=== PATIENT | male | born 1955 | race Caucasian/White ===

== ENCOUNTER 2020-04-18 14:17 | Inpatient (IN) ==
[~2020-04-18 14:17] MED LIST: Famotidine 20 MG/2 ML VIAL IVP ONE
[2020-04-18] MEDS ORDERED: CeFAZolin Syr 2,000MG/20 ML 2,000 MG/20 ML SYRINGE IVPB ONE (14:57)
[2020-04-18] MEDS ORDERED: Ringers Solution, Lactated 1,000 ML IVC SCH ×2 (15:00→19:38)
[2020-04-18] MEDS ORDERED: *HR* OxyCODONE ER (12 HR) 10 MG TABLET PO ONE (16:55)
[2020-04-18] MEDS ORDERED: Dexamethasone 4 MG/ML VIAL IVP ONE (16:55)
[2020-04-18] MEDS ORDERED: Pregabalin 50 MG CAPSULE PO ONE (16:55)
[2020-04-18] MEDS ORDERED: Acetaminophen IV 1,000 MG/100 ML INFUS..BTL IVPB ONE (16:55)
[2020-04-18] MEDS ORDERED: Vancomycin 1,000 MG VIAL ONE (17:18)
[2020-04-18] MEDS ORDERED: Ethanol\\Acetic Acid\\Na Ace\\Ben 1,000 ML IRRIG.SOLN IR ONE (17:18)
[2020-04-18] MEDS ORDERED: *HR* Midazolam HCl 2 MG/2 ML VIAL ONE (17:43)
[2020-04-18] MEDS ORDERED: *HR* FentaNYL (PF) 100 MCG/2 ML VIAL ONE (17:43)
[2020-04-18] MEDS ORDERED: Ropivacaine/PF 0.5% 30 ML VIAL ONE (17:45)
[2020-04-18] MEDS ORDERED: ROPIVACAINE/PF/NS 0.25% 1 EACH SYRINGE INTRAART ONE (17:45)
[2020-04-18] MEDS ORDERED: Lidocaine HCL 4 ML Topical Solution (Laryng-O-Jet Kit Sterile Pak) TP ONE (17:49)
[2020-04-18] MEDS ORDERED: Ondansetron 4 MG/2 ML VIAL ONE (17:49)
[2020-04-18] MEDS ORDERED: *HR* Propofol 200 MG/20 ML VIAL IVP ONE (17:49)
[2020-04-18] MEDS ORDERED: Dexamethasone 4 MG/ML VIAL ONE (17:49)
[2020-04-18] MEDS ORDERED: Lidocaine -MPF 2% 2 ML VIAL ONE (17:49)
[2020-04-18] MEDS ORDERED: Ondansetron 4 MG/2 ML VIAL IVP PRN ×2 (17:57→19:38)
[2020-04-18] MEDS ORDERED: *HR* OxyCODONE Immed Rel 5 MG TABLET PO PRN ×2 (17:57→19:38)
[2020-04-18] MEDS ORDERED: *HR* Enoxaparin 30 MG/0.3 ML SYRINGE SQ SCH (18:00)
[2020-04-18] MEDS ORDERED: Povidone-Iodine 45 ML, Sodium Chloride IRRigation 1,000 ML IR ONE (18:10)
[2020-04-18] MEDS ORDERED: EPHEDrine 50 MG/ML VIAL ONE (18:12)
[2020-04-18] MEDS ORDERED: *HR* PHENYLEPHRINE 1,000 MCG/10 ML SYRINGE IVP ONE (18:15)
[2020-04-18 19:29] LABS: Hematocrit 41.8 % (37.5-50.1); Hemoglobin 13.8 g/dL (12.9-16.9)
[2020-04-18] MEDS ORDERED: Dextrose Gel 15 GM/37.5 ML TUBE PO PRN ×2 (19:38)
[2020-04-18] MEDS ORDERED: Naloxone 0.4 MG/ML INJ IVP PRN (19:38)
[2020-04-18] MEDS ORDERED: Sennosides 8.6 MG TABLET PO PRN (19:38)
[2020-04-18] MEDS ORDERED: D5% in Water 1,000 ML IVC PRN (19:38)
[2020-04-18] MEDS ORDERED: MOM Conc 10 ML UD.LIQ PO PRN (19:38)
[2020-04-18] MEDS ORDERED: *HR* OxyCODONE/APAP 5/325 TABLET PO PRN (19:38)
[2020-04-18] MEDS ORDERED: *HR* Dextrose 50 % in Water (Vial) 50 ML VIAL IVP PRN (19:38)
[2020-04-18] MEDS ORDERED: Insulin LISPRO 300 UNITS/3 ML VIAL SQ SCH (21:00)
[2020-04-19] MEDS: CeFAZolin 2 GM/120 ML BAG IVPB SCH ×2 (01:26→09:07)
[2020-04-19 03:21] LABS: Hematocrit 42.5 % (37.5-50.1); Hemoglobin 13.9 g/dL (12.9-16.9)
[2020-04-19 03:32] LABS: BUN/Creatinine Ratio 21 (6-26); Blood Urea Nitrogen 22 mg/dL (8-23); Carbon Dioxide 25 mEq/L (23-29); Chloride 104 mEq/L (98-107); Glucose 166 mg/dL (70-105); Osmolality,Calculated 287 (280-300); Potassium 4.4 mEq/L (3.5-5.1); Sodium 135 mEq/L (136-145); eGFR For African Americans > 60 (> 60); eGFR For Non-African Americans > 60 (> 60)
[2020-04-19] MEDS ORDERED: *HR* Enoxaparin 30 MG/0.3 ML SYRINGE SQ SCH (06:00)
[2020-04-19] MEDS: Insulin LISPRO 300 UNITS/3 ML VIAL SQ SCH ×2 (09:08→13:08)
[2020-04-19 11:25] VITALS: BP 111/58
== END 2020-04-19 14:39 | disposition home or self-care (01) | DRG 483 ==
LOC: SAMDAY 14:17 → 3NENU 14:29
PROVIDERS: ADMIT Orthopaedic Surgery; ATTEND Orthopaedic Surgery

== ENCOUNTER 2020-07-21 06:16 | Inpatient (IN) ==
[2020-07-21] MEDS ORDERED: CeFAZolin Syr 2,000MG/20 ML 2,000 MG/20 ML SYRINGE IVPB ONE (06:38)
[2020-07-21] MEDS ORDERED: Ringers Solution, Lactated 1,000 ML IVC SCH (06:45)
[2020-07-21] MEDS ORDERED: *HR* FentaNYL (PF) 100 MCG/2 ML VIAL ONE (06:46)
[2020-07-21] MEDS ORDERED: *HR* Midazolam HCl 2 MG/2 ML VIAL ONE (06:46)
[2020-07-21] MEDS ORDERED: *HR* Propofol 200 MG/20 ML VIAL IVP ONE ×2 (06:46→08:30)
[2020-07-21] MEDS ORDERED: Dexamethasone 4 MG/ML VIAL ONE (06:47)
[2020-07-21] MEDS ORDERED: *HR* Succinylcholine 200 MG/10 ML VIAL IVP ONE (06:47)
[2020-07-21] MEDS ORDERED: Lidocaine HCL 4 ML Topical Solution (Laryng-O-Jet Kit Sterile Pak) TP ONE (06:47)
[2020-07-21] MEDS ORDERED: Lidocaine -MPF 2% 2 ML VIAL ONE (06:47)
[2020-07-21] MEDS ORDERED: Ondansetron 4 MG/2 ML VIAL ONE (06:47)
[2020-07-21] MEDS ORDERED: *HR* Rocuronium Bromide 50 MG/5 ML VIAL ONE (06:47)
[2020-07-21] MEDS ORDERED: *HR* Remifentanil 2 MG VIAL IVP ONE (06:58)
[2020-07-21] MEDS ORDERED: *HR* Phenylephrine 10 MG/ML VIAL ONE (06:58)
[2020-07-21] MEDS ORDERED: *HR* Heparin 5,000 UNIT/ML VIAL ONE (06:59)
[2020-07-21] MEDS ORDERED: Heparin 1,000 UNITS/500 mL 500 ML ONE ×3 (07:03→13:07)
[2020-07-21] MEDS ORDERED: Heparin 1,000 UNITS/500 mL 1,500 ML ONE (07:06)
[2020-07-21] MEDS ORDERED: Promethazine 6.25 MG in Water for inj. (sterile) 20 ML IVPB PRN (07:22)
[2020-07-21] MEDS ORDERED: *HR* OxyCODONE Immed Rel 5 MG TABLET PO PRN ×3 (07:22→16:57)
[2020-07-21] MEDS ORDERED: EPHEDrine 50 MG/ML VIAL ONE (07:22)
[2020-07-21] MEDS ORDERED: Ondansetron 4 MG/2 ML VIAL IVP PRN ×2 (07:22→17:14)
[2020-07-21] MEDS ORDERED: *HR* HYDROmorphone PF 0.5 MG/0.5 ML SYRINGE IVP PRN (07:22)
[2020-07-21] MEDS ORDERED: Vancomycin 1,000 MG, Sodium Chloride IRRigation 1,000 ML IR ONE (07:45)
[2020-07-21 08:38] LABS: ABG Base Excess 1 mEq/L (-2 to 3); ABG Chloride 103 mEq/L (98-107); ABG Glucose 96 mg/dL (60-95); ABG HCO3 28 mEq/L (21-27); ABG Ionized Calcium 1.25 mmol/L (1.15-1.35); ABG Oxygen Saturation 100 % (95-98); ABG PCO2 55 mmHg (35-45); ABG PH 7.32 pH Units (7.32-7.45); ABG PO2 349 mmHg (85-104); ABG TCO2 30 mEq/L (20-26)
[2020-07-21] MEDS ORDERED: Heparin 1,000 UNITS/500 mL 1,000 ML ONE (11:50)
[2020-07-21] MEDS ORDERED: *HR* HYDROMORPHONE 2 MG/ML VIAL ONE (12:16)
[2020-07-21] MEDS ORDERED: *HR* Labetalol 20 MG/4 ML SYRINGE IVP ONE (12:18)
[2020-07-21] MEDS ORDERED: 0.9 % Sodium Chloride 1,000 ML IVC SCH (13:55)
[2020-07-21] MEDS ORDERED: *HR* Labetalol 20 MG/4 ML SYRINGE IVP PRN (13:55)
[2020-07-21] MEDS ORDERED: Naloxone 0.4 MG/ML INJ IVP PRN (13:55)
[2020-07-21] MEDS ORDERED: Lacri-Lube 3.5 GM TUBE OP SCH (14:00)
[2020-07-21] MEDS: CeFAZolin 2 GM/120 ML BAG IVPB SCH ×2 (15:01→22:29)
[2020-07-21] MEDS: Lacri-Lube 3.5 GM TUBE OP SCH (15:01)
[2020-07-21] MEDS: *HR* Metoprolol 5 MG/5 ML VIAL IVP SCH (16:28)
[2020-07-21] MEDS ORDERED: Acetaminophen 325 MG TABLET PO PRN ×2 (16:57)
[2020-07-21] MEDS ORDERED: *HR* HYDROcodone/Acet 5/325 mg TABLET PO PRN (16:57)
[2020-07-21] MEDS: *HR* HYDROcodone/Acet 5/325 mg TABLET PO PRN (20:33)
[2020-07-22] MEDS: *HR* Metoprolol 5 MG/5 ML VIAL IVP SCH ×2 (02:09→05:54)
[2020-07-22 04:39] LABS: Basophils % 0.1 %; Immature Granulocytes % 0.4 % (0-4)
[2020-07-22 04:41] LABS: Eosinophils % 0.2 %; Hematocrit 32.8 % (37.5-50.1); Hemoglobin 10.8 g/dL (12.9-16.9); Immature Platelets 6.1 % (1.1-6.1); Lymphocytes # 1.5 K/mcL (0.6-4.6); Lymphocytes % 14.8 %; Mean Corpuscular HGB Conc 32.9 g/dL (31.6-35.5); Mean Corpuscular Hemoglobin 30.9 pg (28.0-33.3); Mean Corpuscular Volume 93.7 fL (83.0-100.0); Mean Platelet Volume 10.8 fL (9.4-12.4); Monocytes # 0.9 K/mcL (0.0-1.3); Monocytes % 8.6 %; Neutrophils # 7.6 K/mcL (1.6-8.9); Platelet Count 134 K/mcL (140-400); Red Cell Distribution Width 14.4 % (11.5-14.5); Segmented Neutrophils % 75.9 %
[2020-07-22 04:59] LABS: BUN/Creatinine Ratio 15 (6-26); Blood Urea Nitrogen 11 mg/dL (8-23); Calcium 8.2 mg/dL (8.6-10.3); Carbon Dioxide 27 mEq/L (23-29); Chloride 103 mEq/L (98-107); Glucose 111 mg/dL (70-105); Osmolality,Calculated 280 (280-300); Sodium 135 mEq/L (136-145); eGFR For African Americans > 60 (> 60); eGFR For Non-African Americans > 60 (> 60)
[2020-07-22] MEDS ORDERED: *HR* Heparin 5,000 UNIT/ML VIAL SQ SCH ×2 (06:00)
[2020-07-22] MEDS: Lacri-Lube 3.5 GM TUBE OP SCH (08:42)
[2020-07-22] MEDS ORDERED: Aspirin Enteric Coated 81 MG Tablet PO SCH (09:00)
[2020-07-22 11:24] VITALS: BP 166/93
[2020-07-22] MEDS: *HR* HYDROcodone/Acet 5/325 mg TABLET PO PRN (11:39)
== END 2020-07-22 11:50 | disposition home or self-care (01) | DRG 269 ==
LOC: SAMDAY 06:16 → 2NNU 13:36
PROVIDERS: ADMIT Surgery; ATTEND Surgery